=== PATIENT | male | born 1965 | race Asian ===

== ENCOUNTER 2017-06-28 09:14 | Emergency (ER) | payer MEDICAID ==
[~2017-06-28] VITALS: Ht 162.6 cm; Wt 63.0 kg
[2017-06-28 10:56] VITALS: BP 150/82
== END 2017-06-28 11:01 | disposition home or self-care (01) ==
LOC: ED 10:42
DX: B86 Scabies (principal); L85.9 Epidermal thickening, unspecified; I10 Essential (primary) hypertension; Z87.891 Personal history of nicotine dependence
CPT/HCPCS: 99283